=== PATIENT | female | born 1950 | race Caucasian/White ===

== ENCOUNTER 2020-02-15 22:19 | Emergency (ER) | payer OTHER ==
[2020-02-15] MEDS ORDERED: ONDANSETRON 4 MG (ODT) TAB ONE (23:30)
[2020-02-16] MEDS ORDERED: LIDOCAINE 1% W/EPI 1:100,000 MDV 20 ML VIAL ONE (00:36)
[2020-02-16] MEDS ORDERED: PROMETHAZINE INJ 25 MG/ML AMP ONE (00:42)
[2020-02-16] MEDS ORDERED: PROMETHAZINE 25 MG TABLET ONE (00:44)
[2020-02-16] MEDS ORDERED: TETANUS & DIPHTHERIA TOX,ADULT 0.5 ML VIAL ONE (00:44)
--- NOTE | 2020-02-16 01:05 | ER ---
Nurse's Notes [facility] Name: Ping Hernandez Age: 69 yrs Sex: Female : 1950 Arrival Date: 02/15/2020 Time: 22:20 Bed 5 Private MD: Diagnosis: Nasal fracture;Distal Phalanx Fracture Presentation: 02/14 22:34 Chief complaint: Patient states: States may have tripped over desk chair and hit face lp1 on tile floor; No LOC; laceration to left temporal area, pain to left thumb, bruising to bridge of nose, deformity noted. Care prior to arrival: None. Mechanism of Injury: Fall from standing position. Trauma event details: Injury occurred in the [facility], Injury occurred: at home. Injury occurred: February 15, 2020 Injury occurred at: 21:30. 22:34 Method Of Arrival: Ambulatory lp1 22:34 Acuity: MARLEE 2 lp1 22:37 Coronavirus screen: Proceed with normal triage. Ebola Screen: No symptoms or risks lp1 identified at this time. Initial Sepsis Screen: Does the patient meet any 2 criteria? No. Patient's initial sepsis screen is negative. Does the patient have a suspected source of infection? No. Patient's initial sepsis screen is negative. Risk Assessment: Do you want to hurt yourself or someone else? Patient reports no desire to harm self or others. Onset of symptoms was February 15, 2020 at 21:30. Triage Assessment: 22:40 General: Appears in no apparent distress. uncomfortable, Behavior is calm, cooperative, rr5 appropriate for age. Trauma Activation: Alert Physician: ED Physician; Name: Dr. Alvarez; Notified At: 23:03; Arrived At: 23:03 Physician: General Surgeon; Name: N/A; Notified At: 23:03; Arrived At: Physician: Radiology; Name: Nicki; Notified At: 23:03; Arrived At: 23:04 Physician: Respiratory; Name: N/A; Notified At: 23:03; Arrived At: Physician: Lab; Name: N/A; Notified At: 23:03; Arrived At: Historical: - Allergies: 22:36 Codeine; lp1 - Home Meds: 22:36 Metoprolol Tartrate Oral [Active]; lp1 - PMHx: 22:36 Hypertension; lp1 - PSHx: 22:36 Hysterectomy; lp1 - Immunization history:: Adult Immunizations up to date, Last tetanus immunization: unknown. - Social history:: Smoking status: Patient denies any tobacco usage or history of. Screenin:36 Abuse screen: Denies threats or abuse. Denies injuries from another. Nutritional lp1 screening: No deficits noted. Tuberculosis screening: No symptoms or risk factors identified. Fall Risk None identified. Primary Survey: 22:36 NO uncontrolled hemorrhage observed. A: The patient is alert. Airway: patent. lp1 Breathing/Chest: Breath sounds: clear, Chest inspection: symmetrical rise and fall of the chest. Circulation: Skin color: pink, Skin temperature: warm, dry. Disability Alert. 22:36 Exposure/Environment: All clothing and personal items were removed. There is no rr5 evidence of uncontrolled external bleeding. Obvious injury(ies) are noted at this time: swelling on the face cut wound left temporal area. abrasion, swelling bruise noted on the left thumb. A warming method has been applied: A warm blanket has been provided to the patient. 23:30 Reassessment Airway Airway Patent Breathing/Chest Respiratory pattern Regular rr5 Respiratory effort Spontaneous Unlabored Breath sounds Clear Chest inspection Symmetrical Circulation Heart tones Present Pulses Palpable Color [place] Temperature Warm Dry Disability Alert. Secondary Survey: 22:36 HEENT: Face Other swelling and bruise (purplish in color) lacerated wound at left rr5 temporal area Eyes: Raccoon eyes noted. right eye and left eye. Ears: clear bilaterally. Nose: clear to bilateral nares. Throat: is clear with gag reflex present. 22:36 Musculoskeletal: Circulation, motion, and sensation intact. Swelling present in left rr5 thumb. Assessment: 22:40 General: Appears in no apparent distress. uncomfortable, Behavior is calm, cooperative, rr5 appropriate for age. 22:40 Pain: Complains of pain in face, right eye, left eye and nose Pain Quality of pain is rr5 described as aching, Pain began suddenly, Is intermittent. Neuro: Level of Consciousness is awake, alert, obeys commands, Oriented to person, place, time, situation, Appropriate for age. Cardiovascular: Capillary refill < 3 seconds Patient's skin is warm and dry. Respiratory: Airway is patent Respiratory effort is even, unlabored, Respiratory pattern is regular, symmetrical. GI: Reports nausea. : No signs and/or symptoms were reported regarding the genitourinary system. EENT: Eyes swelling noted. swelling on the nose bridge noted. Reports pain in right eye, nose and left eye. Derm: Bruising that is dark purple, on right eye, left eye, dorsal aspect of proximal phalanx of left thumb, palmar aspect of distal phalanx of left thumb, palmar aspect of proximal phalanx of left thumb, left thumbnail and nose. Musculoskeletal: Circulation, motion, and sensation intact. Capillary refill < 3 seconds. 02/15 00:00 Reassessment: Patient appears in no apparent distress at this time. Patient is alert, rr5 oriented x 3, equal unlabored respirations, skin warm/dry/pink. awaiting for results. 01:00 Reassessment: Patient appears in no apparent distress at this time. Patient is alert, rr5 oriented x 3, equal unlabored respirations, skin warm/dry/pink. for discharge awaiting to feel relieve form the nausea. 02:00 Reassessment: Patient appears in no apparent distress at this time. Patient is alert, rr5 oriented x 3, equal unlabored respirations, skin warm/dry/pink. Patient states feeling better. Patient states symptoms have improved. 03:00 Reassessment: Patient appears in no apparent distress at this time. Patient is alert, rr5 oriented x 3, equal unlabored respirations, skin warm/dry/pink. discharge instruction given and explained without complaints made Patient states symptoms have improved. Vital Signs: 02/14 22:37 BP 133 / 95; Pulse 81; Resp 18; Temp 99(TE); Pulse Ox 99% on R/A; Weight 69.4 kg (R); lp1 Height 5 ft. 2 in. (157.48 cm); Pain 9/10; 02/15 00:00 BP 111 / 66; Pulse 79; Resp 18; Pulse Ox 98% ; rr5 01:00 BP 129 / 94; Pulse 71; Resp 15; Pulse Ox 100% ; rr5 02:00 BP 116 / 64; Pulse 75; Resp 19; Pulse Ox 99% ; rr5 03:00 BP 131 / 75; Pulse 80; Resp 16; Pulse Ox 99% on R/A; rr5 02/14 22:37 Body Mass Index 27.98 (69.40 kg, 157.48 cm) lp1 Damascus Coma Score: 02/14 22:36 Eye Response: spontaneous(4). Verbal Response: oriented(5). Motor Response: obeys lp1 commands(6). Total: 15. 02/15 03:00 Eye Response: spontaneous(4). Verbal Response: oriented(5). Motor Response: obeys rr5 commands(6). Total: 15. Trauma Score (Adult): 02/14 22:36 Eye Response: spontaneous(1); Verbal Response: oriented(1); Motor Response: obeys lp1 commands(2); Systolic BP: > 89 mm Hg(4); Respiratory Rate: 10 to 29 per min(4); Kathleen Score: 15; Trauma Score: 12 02/15 03:00 Eye Response: spontaneous(1); Verbal Response: oriented(1); Motor Response: obeys rr5 commands(2); Systolic BP: > 89 mm Hg(4); Respiratory Rate: 10 to 29 per min(4); Damascus Score: 15; Trauma Score: 12 ED Course: 02/14 22:20 Patient arrived in ED. cl3 22:35 Triage completed. lp1 22:36 Arm band placed on right wrist. lp1 22:37 Patient maintains SpO2 saturation greater than 95% on room air. lp1 22:37 Thermoregulation: warm blanket given to patient. lp1 22:40 Patient has correct armband on for positive identification. Placed in gown. Bed in low rr5 position. Call light in reach. 22:40 Pulse ox on. NIBP on. rr5 22:55 Michelle Minor PA is PHCP. jmm 22:55 Dieudonne Alvarez MD is Attending Physician. jmm 23:19 Jeet Coleman, RN is Primary Nurse. rr5 23:38 Hand Left 3 View XRAY In Process Unspecified. EDMS 23:43 CT Facial Bones W/O Con In Process Unspecified. EDMS 23:44 CT Head C Spine In Process Unspecified. EDMS 02/15 00:40 Assist provider with laceration repair on left episcopal that was 2.5 cm. or less using rr5 sutures. Set up tray. Performed by Michelle THOMASON Dressed with band aid, Neosporin, Patient tolerated well. 00:40 Patient did not have IV access during this emergency room visit. rr5 01:04 Alexia Ngo MD is Referral Physician. [facility] 02:55 Aluminum finger splint applied to palmar aspect of distal phalanx of left thumb and ds4 palmar aspect of proximal phalanx of left thumb. 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 Exp: lp1 11/08/2021. Lot #: [id number]. } Route: IM; Site: left deltoid; :40 Follow up: Response: No adverse reaction rr5 Intake: 03:00 PO: 0ml; Total: 0ml. rr5 Outcome: 01:04 Discharge ordered by . [facility] 03:05 Discharged to home via wheelchair. rr5 03:05 Condition: stable 03:05 Discharge instructions given to patient, Instructed on discharge instructions, follow up and referral plans. medication usage, Demonstrated understanding of instructions, follow-up care, medications, Prescriptions given X 2. 03:05 patient feels nauseatedPatient's length of stay extended due to rr5 03:07 Patient left the ED. rr5 Signatures: Dispatcher [employer] EDMS Michelle Minor PA PA jmm Pena, Laura, RN RN lp1 Hong Fontaine ds4 Jeet Coleman RN RN rr5 Peace Gaspar cl3 Corrections: (The following items were deleted from the chart) 02/14 23:03 22:34 Acuity: MARLEE 3 lp1 lp1
--- NOTE | 2020-02-16 01:05 | EDPHYS ---
Physician Documentation [facility] Name: Ping Hernandez Age: 69 yrs Sex: Female : 1950 Arrival Date: 02/15/2020 Time: 22:20 Bed 5 Private MD: ED Physician Dieudonne Alvarez HPI: 02/14 22:57 This 69 yrs old Female presents to ER via Ambulatory with complaints of Fall jmm Injury, Nausea. 22:57 Details of fall: The patient fell from an upright position. Onset: The symptoms/episode jmm began/occurred acutely, just prior to arrival. Associated injuries: The patient sustained injury to the head, left thumb. This is a 69 year old female with a history of htn that presents to the ED after tripping and hitting her head against the edge of a desk. Patient states her thumb may have been hit by the edge of a staircase. Denies loc or vomiting but complains of nausea. . Historical: - Allergies: 22:36 Codeine; lp1 - Home Meds: 22:36 Metoprolol Tartrate Oral [Active]; lp1 - PMHx: 22:36 Hypertension; lp1 - PSHx: 22:36 Hysterectomy; lp1 - Immunization history:: Adult Immunizations up to date, Last tetanus immunization: unknown. - Social history:: Smoking status: Patient denies any tobacco usage or history of. ROS: 22:57 Constitutional: Negative for fever, chills, and weight loss, Cardiovascular: Negative jmm for chest pain, palpitations, and edema, Respiratory: Negative for shortness of breath, cough, wheezing, and pleuritic chest pain. 22:57 Abdomen/GI: Positive for nausea. 22:57 MS/extremity: Positive for injury or acute deformity, pain. 22:57 Skin: Positive for laceration(s). 22:57 All other systems are negative. Exam: 22:57 Constitutional: This is a well developed, well nourished patient who is awake, alert, jmm and in no acute distress. 22:57 Neck: Trachea midline, Supple Chest/axilla: Normal chest wall appearance and motion. Cardiovascular: Regular rate and rhythm. No edema appreciated Respiratory: Normal respirations, no respiratory distress appreciated Abdomen/GI: Non distended, soft Back: Normal ROM 22:57 Head/face: frontal facial swelling noted, 2 cm laceration noted to the left frontal scalp, . 22:57 ENT: Nose: swelling noted, nasal septal hematoma is not appreciated. 22:57 Musculoskeletal/extremity: ecchymosis noted to the left thumb, ttp, < 2 sec dist cap refill, NVI. 22:57 Skin: 2 cm laceration noted to the left frontal scalp, ecchymosis noted to the left thumb. 22:57 Neuro: Orientation: is normal, Mentation: is normal, Memory: is normal. 22:57 Psych: Behavior/mood is pleasant, cooperative. Vital Signs: 22:37 BP 133 / 95; Pulse 81; Resp 18; Temp 99(TE); Pulse Ox 99% on R/A; Weight 69.4 kg (R); lp1 Height 5 ft. 2 in. (157.48 cm); Pain 9/10; 02/15 00:00 BP 111 / 66; Pulse 79; Resp 18; Pulse Ox 98% ; rr5 01:00 BP 129 / 94; Pulse 71; Resp 15; Pulse Ox 100% ; rr5 02:00 BP 116 / 64; Pulse 75; Resp 19; Pulse Ox 99% ; rr5 03:00 BP 131 / 75; Pulse 80; Resp 16; Pulse Ox 99% on R/A; rr5 02/14 22:37 Body Mass Index 27.98 (69.40 kg, 157.48 cm) lp1 Kathleen Coma Score: 02/14 22:36 Eye Response: spontaneous(4). Verbal Response: oriented(5). Motor Response: obeys lp1 commands(6). Total: 15. 02/15 03:00 Eye Response: spontaneous(4). Verbal Response: oriented(5). Motor Response: obeys rr5 commands(6). Total: 15. Trauma Score (Adult): 02/14 22:36 Eye Response: spontaneous(1); Verbal Response: oriented(1); Motor Response: obeys lp1 commands(2); Systolic BP: > 89 mm Hg(4); Respiratory Rate: 10 to 29 per min(4); Kathleen Score: 15; Trauma Score: 12 02/15 03:00 Eye Response: spontaneous(1); Verbal Response: oriented(1); Motor Response: obeys rr5 commands(2); Systolic BP: > 89 mm Hg(4); Respiratory Rate: 10 to 29 per min(4); Hosford Score: 15; Trauma Score: 12 Laceration: 01:01 Wound Repair of 2cm ( 0.8in ) subcutaneous laceration to left adventist. Distal [facility] neuro/vascular/tendon intact. Anesthesia: Local anesthetic administered with 5 mls of 1% lidocaine. Wound prep: Simple cleansing with betadine by me. Skin closed with 5 5-0 Prolene using simple sutures and sterile technique. Patient tolerated well. MDM: 02/14 22:57 Patient medically screened. [facility] 02/15 00:14 Data reviewed: vital signs, nurses notes. [facility] 01:01 Counseling: I had a detailed discussion with the patient and/or guardian regarding: the [facility] historical points, exam findings, and any diagnostic results supporting the discharge/admit diagnosis, radiology results, the need for outpatient follow up, to return to the emergency department if symptoms worsen or persist or if there are any questions or concerns that arise at home. ED course: CT imaging revealed hematoma, PE did not reveal a nasal septa hematoma. Patient is advised to follow up with ENT for nasal bone fracture. Patient is otherwise given strict return precautions. Patient understood and agrees with the plan of care. . 02/14 23:03 Order name: CT Head C Spine [facility] 02/14 23:03 Order name: CT Facial Bones W/O Con [facility] 02/14 23:03 Order name: Hand Left 3 View XRAY; Complete Time: 15:11 [facility] 02/15 01:01 [place] [facility] [place]: wound care, left thumb, aluminum foam splint; Complete Time: [facility] 02:55 Administered Medications: 02/14 23:46 Drug: Zofran (Ondansetron) 4 mg Route: PO; rr5 02/15 00:30 Follow up: Response: No adverse reaction; Nausea unchanged rr5 00:40 Drug: Lidocaine (1 %) 20 ml {Note: given by michelle CERRATO} Volume: 20 ml; Route: rr5 Infiltration; 01:40 Follow up: Response: No adverse reaction rr5 00:43 Drug: Promethazine 25 mg Route: PO; lp1 02:30 Follow up: Response: No adverse reaction; Marked relief of symptoms rr5 00:43 Drug: Tetanus-Diphtheria Toxoid Adult 0.5 ml {[employer] Operator: [employer]. Exp: lp1 11/08/2021. Lot #: [id number]. } Route: IM; Site: left deltoid; 01:40 Follow up: Response: No adverse reaction rr5 Disposition: 07:41 Co-signature as Attending Physician, Dieudonne Alvarez MD I agree with the assessment and bob plan of care. Disposition: 02/16/20 01:04 Discharged to Home. Impression: Nasal fracture, Distal Phalanx Fracture. - Condition is Stable. - Discharge Instructions: Finger Fracture, Nasal Fracture. - Prescriptions for Augmentin 875- 125 mg Oral Tablet - take 1 tablet by ORAL route every 12 hours for 10 days; 20 tablet. promethazine 25 mg Oral Tablet - take 1 tablet by ORAL route every 6 hours As needed; 20 tablet. Ultracet 37.5- 325 mg Oral Tablet - take 1 tablet by ORAL route every 6 hours - for up to 5 days; do not exceed 8 tablets per day.; 12 tablet. - Medication Reconciliation Form, Thank You Letter, Antibiotic Education, Prescription Opioid Use form. - Follow up: Alexia Ngo MD; When: 2 - 3 days; Reason: Recheck today's complaints, Continuance of care, Staple/Suture removal, Re-evaluation by your physician. Signatures: Dispatcher [employer] EDDieudonne Escobar MD MD cha Mickail, Joel, PA PA jmm Pena, Laura, RN RN lp1 Jeet Coleman RN RN rr5 Corrections: (The following items were deleted from the chart) 03:07 01:04 02/16/2020 01:04 Discharged to Home. Impression: Nasal fracture; Distal Phalanx rr5 Fracture. Condition is Stable. Forms are Medication Reconciliation Form, Thank You Letter, Antibiotic Education, Prescription Opioid Use. Follow up: Alexia Ngo; When: 2 - 3 days; Reason: Recheck today's complaints, Continuance of care, Staple/Suture removal, Re-evaluation by your physician. carmita
[2020-02-16 03:12] VITALS: BP 133/95; TEMP 99; O2SAT 99
--- NOTE | 2020-02-16 11:24 | RAD REPORT ---
EXAM DESCRIPTION: RAD - Hand Left 3 View - 02/15/2020 11:38 pm CLINICAL HISTORY: fall, hand injury COMPARISON: None. FINDINGS: Transverse fracture is present through the tuft of the left thumb. No distraction or angul ation deformity of any measurable degree. Soft tissue is swollen at the thumb. No other fracture or acute bone process. Patient has significant degenerative change at the trapezial first metacarpal articulation. No foreign body. IMPRESSION: Fracture of the tuft distal phalanx left thumb. No distraction or angulation.
--- NOTE | 2020-02-16 19:53 | RAD REPORT ---
EXAM DESCRIPTION: CT - Facial Bones W/ Mpr - 02/16/2020 6:57 am CLINICAL HISTORY: 69 years Female fall COMPARISON: None TECHNIQUE: Images were obtained in axial, sagittal, and coronal planes. This exam was performed according to our departmental dose-optimization program which includes use of Automated Exposure Control, adjustment of the mA and/or kV according to patient size and/or use of iterative reconstruction technique. FINDINGS: Comminuted nasal bone fractures. Fragmentation anterior maxillary spine. Soft tissue swell ing with suspected hematoma nasal region. No fractures orbits bilaterally. Zygomatic arches intact bilaterally. No mandibular fracture. No evidence for dental abscess. Pterygoid plates intact bilaterally. Symmetric aeration mastoid air cells bilaterally. No air-fluid levels seen. Otherwise unremarkable paranasal sinuses. Prevertebral soft tissues appear normal. Intact odontoid and predental space. Moderate anterior osteo phyte formation C4-5, C5-6, and C6-7 levels. Marginal spur formation with neural foraminal narrowing noted at these levels bilaterally. IMPRESSION: Comminuted nasal bone fractures. Fragmentation anterior maxillary spine. No additional fracture seen. Electronically signed by: Melissa Rivera MD 02/15/2020 11:53 PM CDT Due to temporary technical issues with the PACS/Fluency reporting system, reports are being signed by the in house radiologist as a courtesy to ensure prompt reporting. The interpreting radiologist is f ully responsible for the content of the report.
--- NOTE | 2020-02-16 20:20 | RAD REPORT ---
EXAM DESCRIPTION: CT - [id number] - 02/16/2020 6:58 am CLINICAL HISTORY: Trauma. COMPARISON: None. TECHNIQUE: CT scan of the brain and cervical spine was performed without IV contrast. This exam was performed according to our departmental dose-optimization program, which includes automated exposure control, adjustment of the mA and/or kV according to patient size and/or use of iterative reconstruct ion technique. FINDINGS: BRAIN: The ventricles, cisterns, and sulci are age-appropriate. No evidence of acute infarction, intracrania l hemorrhage, extra-axial fluid collection, or midline shift. No air-fluid levels are seen in the par anasal sinuses to suggest acute sinusitis. No depressed skull fracture. CERVICAL SPINE: No acute cervical fracture or prevertebral soft tissue swelling. There is straightening of the normal cervical lordosis, which may be due to cervical collar, muscle spasm, or patient positioning. There is mild degenerative disc disease in the cervical spine. There is also facet arthropathy. No advanced canal stenosis is identified. IMPRESSION: 1. No acute intracranial hemorrhage. 2. No acute fracture or subluxation of the cervical spine. Electronically signed by: Brandon Soliman MD 02/15/2020 11:49 PM CDT Due to temporary technical issues with the PACS/Fluency reporting system, reports are being signed by the in house radiologist as a courtesy to ensure prompt reporting. The interpreting radiologist is f ully responsible for the content of the report. *
== END 2020-02-16 03:07 | disposition home or self-care (01) ==
LOC: ER 22:19
PROC: 0JQ10ZZ Repair Face Subcutaneous Tissue and Fascia, Open Approach (ICD-10-PCS; principal; 2020-02-16)
DX: S02.2XXA Fracture of nasal bones, initial encounter for closed fracture (principal); S62.522A Displaced fracture of distal phalanx of left thumb, initial encounter for closed fracture; S01.81XA Laceration without foreign body of other part of head, initial encounter; W01.190A Fall on same level from slipping, tripping and stumbling with subsequent striking against furniture, initial encounter; Y93.9 Activity, unspecified; Y92.9 Unspecified place or not applicable; I10 Essential (primary) hypertension; Z88.5 Allergy status to narcotic agent
CPT/HCPCS: 70450; 72125; 70486; 76377; 73130; 90471; 90714; 99284; 12011; J2550; Q0169

== ENCOUNTER 2025-01-11 13:54 | Emergency (ER) | payer OTHER ==
--- OUTSIDE RECORDS SUMMARY | 2025-01-11 13:58 | XMS REPORT | Continuity of Care Document ---
Author Name Unknown Address [address] [place] [address] Organization [facility] Address [address] [place] [address] Care Team Providers Care Technology Director Name Role Phone William Shore Attending Clinician Unavailable No, PCP Attending Clinician Unavailable Chito Torres Attending Clinician Unavailable Dylan Attending Clinician Unavailable Roselia Attending Clinician Unavaila ble Dylan Admitting Clinician Unavailable Roselia Admitting Clinician Unavaila ble Payers Payer Name Policy Type Policy Number Effective Date Expirati on Date Source [employer] MEDICARE 53 [id number] 2023 00:00:00 Common [facility] AETNA (MEDICARE REPLACEMENT PPO) [id number] 2022 00:00:00 [employer] MEDICARE 53 [id number] Co mmon [facility] Problems Condition Name Condition Details Condition Category Status Onset Date Resolution Date Last Treatment Date Treating Clinician Comments Source Chronic anxiety Chronic Anxiety Problem Active 2022-09 00:00: 00 [facility] Idiopathic peripheral neuropathy Idiopathic Peripheral Neuropathy Problem Active 2022-09 00:00: 00 [facility] Benign essential hypertensi on Benign Essential Hypertensi on Problem Active 2022-09 00:00: 00 [facility] Hyperlipid emia Hyperlipid emia Problem Active 2022-09 00:00: 00 [facility] [id number] Allergic rhinitis, unspecifie d seasonalit y, unspecifie d trigger Problem [facility] [id number] Current moderate episode of major depressive disorder without prior episode Problem [facility] [id number] Mixed hyperlipid emia Problem [facility] [id number] Seasonal allergies Problem [facility] [id number] HTN, goal below 150/90 Problem [facility] Vitamin D deficiency Vitamin D deficiency Problem [facility] Allergies, Adverse Reactions, Alerts Allergy Name Allergy Type Status Severity Reaction(s) Onset Date Inactive Date Treating Clinician Comments Source codeine DA Active MO 10-02 00:00: 00 [facility] codeine DA Active U 03-12 00:00: 00 [facility] .ANIMAL DA Active U 11-03 00:00: 00 [facility] .TREES DA Active U 11-03 00:00: 00 [facility] CODEINE DA Active U 11-03 00:00: 00 [facility] DUST DA Active U 11-03 00:00: 00 [facility] MOLD DA Active U 11-03 00:00: 00 [facility] No Known Contrast Allergie s DA Active U - 00:00: 00 [facility] No Known Food Allergie s DA Active U 11-03 00:00: 00 [facility] Codeine Allergy to substanc e Active Headache [facility] STATINS- HMG-COA REDUCTAS E INHIBITO RS Allergy to substanc e Active Nausea [facility] Codeine Codeine Active Unknown [facility] Social History Social Habit Start Date Stop Date Quantity Comments Source Sex Assigned At [facility] History of Tobacco Use [facility] Smoking Status Start Date Stop Date Source Never Smoker [facility] Medications Ordered Medication Name Filled Medication Name Start Date Stop Date Current Medication? Ordering Clinician Indication Dosage Frequency Signature (SIG) Comments Components Source Kenalog (Triamcinol one) Kenalog (Triamcinol one) 11-13 00:00: 00 No 40mg [facility] oseltamivir 75 mg capsule TAKE 1 CAPSULE BY MOUTH TWICE DAILY oseltamivir 75 mg capsule TAKE 1 CAPSULE BY MOUTH TWICE DAILY No oseltamivi r 75 mg capsule TAKE 1 CAPSULE BY MOUTH TWICE DAILY [facility] Praluent Pen 150 mg/mL subcutaneou s pen injector INJECT 1 ML UNDER THE SKIN EVERY TWO WEEKS Praluent Pen 150 mg/mL subcutaneou s pen injector INJECT 1 ML UNDER THE SKIN EVERY TWO WEEKS No Praluent Pen 150 mg/mL subcutaneo us pen injector INJECT 1 ML UNDER THE SKIN EVERY TWO WEEKS [facility] Praluent Pen 75 mg/mL subcutaneou s pen injector Inject 1 mL every 2 weeks by subcutaneou s route as directed for 90 days. Praluent Pen 75 mg/mL subcutaneou s pen injector Inject 1 mL every 2 weeks by subcutaneou s route as directed for 90 days. No 1mL Q2W Praluent Pen 75 mg/mL subcutaneo us pen injector Inject 1 mL every 2 weeks by subcutaneo us route as directed for 90 days. [facility] tizanidine 2 mg tablet TAKE 1 TABLET BY MOUTH AT BEDTIME ONE A DAY NEEDED FOR MUSCLE SPASMS AND MUSCLE TENSION /MAY CAUSE DROWSINESS tizanidine 2 mg tablet TAKE 1 TABLET BY MOUTH AT BEDTIME ONE A DAY NEEDED FOR MUSCLE SPASMS AND MUSCLE TENSION /MAY CAUSE DROWSINESS No tizanidine 2 mg tablet TAKE 1 TABLET BY MOUTH AT BEDTIME ONE A DAY NEEDED FOR MUSCLE SPASMS AND MUSCLE TENSION /MAY CAUSE DROWSINESS [facility] Vitamin D 2000 UNIT Vitamin D 2000 UNIT No 1{table t} QD Vitamin D 2000 UNIT Metoprolol Tartrate 50 MG Metoprolol Tartrate 50 MG No 1{table t_with_ food} QD Metoprolol Tartrate 50 MG Vitamin C 500 MG Vitamin C 500 MG No Vitamin C 500 MG Edarbyclor 40-25 MG Edarbyclor 40-25 MG No 1{table t} QD Edarbyclor 40-25 MG Metoprolol Succinate ER 50 MG Metoprolol Succinate ER 50 MG No 1{table t} QD Metoprolol Succinate ER 50 MG Amitriptyli ne HCl 10 MG Amitriptyli ne HCl 10 MG No 1{table t_at_be dtime} QD Amitriptyl ine HCl 10 MG Sulfamethox azole-Trime thoprim 800-160 MG Sulfamethox azole-Trime thoprim 800-160 MG No 1{table t} BID Sulfametho xazole-Tri methoprim 800-160 MG Probiotic Pearls - Probiotic Pearls - No Probiotic Pearls - amitriptyli ne 10 mg tablet Take 1 tablet every day by oral route at bedtime for 30 days. amitriptyli ne 10 mg tablet Take 1 tablet every day by oral route at bedtime for 30 days. No 1 Q1D amitriptyl ine 10 mg tablet Take 1 tablet every day by oral route at bedtime for 30 days. [facility] CoQ-10 CoQ-10 No CoQ-10 [facility] Edarbyclor 40 mg-12.5 mg tablet Take 1 tablet every day by oral route as directed for 30 days, for management of blood pressuren. Edarbyclor 40 mg-12.5 mg tablet Take 1 tablet every day by oral route as directed for 30 days, for management of blood pressuren. No 1 Q1D Edarbyclor 40 mg-12.5 mg tablet Take 1 tablet every day by oral route as directed for 30 days, for management of blood pressuren. [facility] metoprolol succinate ER 50 mg tablet,exte nded release 24 hr Take 1 tablet every day by oral route as directed for 90 days, for control of blood pressure. metoprolol succinate ER 50 mg tablet,exte nded release 24 hr Take 1 tablet every day by oral route as directed for 90 days, for control of blood pressure. No 1 Q1D metoprolol succinate ER 50 mg tablet,ext ended release 24 hr Take 1 tablet every day by oral route as directed for 90 days, for control of blood pressure. [facility] Probiotic Probiotic No Probiotic [facility] Vitamin C Vitamin C No Vitamin C [facility] Vitamin D Vitamin D No Vitamin D [facility] Aspercreme (lidocaine) 4 % topical patch APPLY TO AFFECTED AREA(S) ,KEEP IT ON FOR 12 HOURS THEN TAKE IT OFF FOR 12 HOUR ONCE DAILY Aspercreme (lidocaine) 4 % topical patch APPLY TO AFFECTED AREA(S) ,KEEP IT ON FOR 12 HOURS THEN TAKE IT OFF FOR 12 HOUR ONCE DAILY No Aspercreme (lidocaine ) 4 % topical patch APPLY TO AFFECTED AREA(S) ,KEEP IT ON FOR 12 HOURS THEN TAKE IT OFF FOR 12 HOUR ONCE DAILY [facility] benzonatate 200 mg capsule TAKE 1 CAPSULE BY MOUTH THREE TIMES DAILY NEEDED benzonatate 200 mg capsule TAKE 1 CAPSULE BY MOUTH THREE TIMES DAILY NEEDED No benzonatat e 200 mg capsule TAKE 1 CAPSULE BY MOUTH THREE TIMES DAILY NEEDED [facility] cyclobenzap rine 10 mg tablet TAKE 1 TABLET BY MOUTH AT BEDTIME ONE A DAY NEEDED FOR MUSCLE SPASMS AND MUSCLE TENSION /MAY CAUSE DROWSINESS cyclobenzap rine 10 mg tablet TAKE 1 TABLET BY MOUTH AT BEDTIME ONE A DAY NEEDED FOR MUSCLE SPASMS AND MUSCLE TENSION /MAY CAUSE DROWSINESS No cyclobenza beverley 10 mg tablet TAKE 1 TABLET BY MOUTH AT BEDTIME ONE A DAY NEEDED FOR MUSCLE SPASMS AND MUSCLE TENSION /MAY CAUSE DROWSINESS [facility] cyclobenzap rine 5 mg tablet TAKE 1 TABLET BY MOUTH ONCE DAILY AT BEDTIME NEEDED cyclobenzap rine 5 mg tablet TAKE 1 TABLET BY MOUTH ONCE DAILY AT BEDTIME NEEDED No cyclobenza beverley 5 mg tablet TAKE 1 TABLET BY MOUTH ONCE DAILY AT BEDTIME NEEDED [facility] diclofenac 1 % topical gel APPLY TO AFFECTED AREAS EVERY 6 HOURS NEEDED FOR PAIN diclofenac 1 % topical gel APPLY TO AFFECTED AREAS EVERY 6 HOURS NEEDED FOR PAIN No diclofenac 1 % topical gel APPLY TO AFFECTED AREAS EVERY 6 HOURS NEEDED FOR PAIN [facility] diclofenac sodium 50 mg tablet,karen yed release TAKE 1 TABLET BY MOUTH 2 TIMES DAILY WITH MEALS FOR MUSCLE/JOIN T/BACK PAIN AND INFLAMMATIO N diclofenac sodium 50 mg tablet,karen yed release TAKE 1 TABLET BY MOUTH 2 TIMES DAILY WITH MEALS FOR MUSCLE/JOIN T/BACK PAIN AND INFLAMMATIO N No diclofenac sodium 50 mg tablet,del ayed release TAKE 1 TABLET BY MOUTH 2 TIMES DAILY WITH MEALS FOR MUSCLE/BRIELLE NT/BACK PAIN AND INFLAMMATI ON [facility] hyoscyamine 0.125 mg disintegrat ing tablet TAKE 1 TO 2 TABLETS BY MOUTH EVERY 4 TO 6 HOURS hyoscyamine 0.125 mg disintegrat ing tablet TAKE 1 TO 2 TABLETS BY MOUTH EVERY 4 TO 6 HOURS No hyoscyamin e 0.125 mg disintegra ting tablet TAKE 1 TO 2 TABLETS BY MOUTH EVERY 4 TO 6 HOURS [facility] meloxicam 15 mg tablet TAKE 1 TABLET(S) BY MOUTH ONCE A DAY WITH MEALS FOR MUSCLE /JOINT / BACK PAIN AND INFLAMMATIO N meloxicam 15 mg tablet TAKE 1 TABLET(S) BY MOUTH ONCE A DAY WITH MEALS FOR MUSCLE /JOINT / BACK PAIN AND INFLAMMATIO N No meloxicam 15 mg tablet TAKE 1 TABLET(S) BY MOUTH ONCE A DAY WITH MEALS FOR MUSCLE /JOINT / BACK PAIN AND INFLAMMATI ON [facility] Vital Signs Vital Name Observation Time Observation Value Comments S ource height 2024-11-08 14:00:00 62.5 [in_i] Comm on [facility] weight 2024-11-08 14:00:00 153.8 [lb_av] Co mmon [facility] temperature 2024-11-08 14:00:00 97.4 [degF] Com mon [facility] bmi 2024-11-08 14:00:00 27.68 kg/m2 Comm on [facility] oximetry 2024-11-08 14:00:00 99 % Commo n [facility] respiratory rate 2024-11-08 14:00:00 17 /min [facility] blood pressure systolic 2024-11-08 14:00:00 127 mm[Hg] [facility] blood pressure diastolic 2024-11-08 14:00:00 68 mm[Hg] [facility] height 2024-11-08 14:00:00 62.5 [in_i] Comm on [facility] weight 2024-11-08 14:00:00 153.8 [lb_av] Co mmon [facility] temperature 2024-11-08 14:00:00 97.4 [degF] Com mon [facility] bmi 2024-11-08 14:00:00 27.68 kg/m2 Comm on [facility] oximetry 2024-11-08 14:00:00 99 % Commo n [facility] respiratory rate 2024-11-08 14:00:00 17 /min [facility] blood pressure systolic 2024-11-08 14:00:00 127 mm[Hg] [facility] blood pressure diastolic 2024-11-08 14:00:00 68 mm[Hg] [facility] Body Weight 2024-02-06 00:00:00 91513.93 g [facility] BMI (Body Mass Index) 2024-02-06 00:00:00 26.5 kg/m2 [facility] BP Diastolic 2024-02-06 00:00:00 70 mm[Hg] [facility] BP Systolic 2024-02-06 00:00:00 117 mm[Hg] [facility] Height 2024-02-06 00:00:00 154.94 cm [facility] height 2023-09-07 10:00:00 62.5 [in_i] Comm on [facility] weight 2023-09-07 10:00:00 135 [lb_av] Comm on [facility] temperature 2023-09-07 10:00:00 99.4 [degF] Com mon [facility] bmi 2023-09-07 10:00:00 24.3 kg/m2 Commo n [facility] Body Weight 2023-08-10 00:00:00 40329.56 g [facility] Height 2023-08-10 00:00:00 154.94 cm [facility] BP Diastolic 2023-08-10 00:00:00 74 mm[Hg] [facility] BMI (Body Mass Index) 2023-08-10 00:00:00 25.7 kg/m2 [facility] BP Systolic 2023-08-10 00:00:00 122 mm[Hg] [facility] height 2023-07-03 13:00:00 62.5 [in_i] Comm on [facility] weight 2023-07-03 13:00:00 147.4 [lb_av] Co mmon [facility] temperature 2023-07-03 13:00:00 97.5 [degF] Com mon [facility] bmi 2023-07-03 13:00:00 26.53 kg/m2 Comm on [facility] oximetry 2023-07-03 13:00:00 100 % Commo n [facility] respiratory rate 2023-07-03 13:00:00 16 /min [facility] blood pressure systolic 2023-07-03 13:00:00 139 mm[Hg] [facility] blood pressure diastolic 2023-07-03 13:00:00 65 mm[Hg] [facility] height 2022-03-30 14:40:00 62.5 [in_i] Comm on [facility] weight 2022-03-30 14:40:00 155 [lb_av] Comm on [facility] bmi 2022-03-30 14:40:00 27.9 kg/m2 Commo n [facility] Procedures Procedure Date / Time Performed Performing Clinicia n Source electrocardiogram 2023-08-10 00:00:00 [facility] Encounters Start Date/Time End Date/Time Encounter Type Admission Type Attending [facility] Care Facility Care Department Encounter ID Source 2024-11-06 10:51:00 Outpatient William Shore [facility] [id number] [facility] 2024-11-05 09:25:01 Outpatient No, PCP CLS CLS [id number] [facility] 2024-10-31 15:22:02 Outpatient CLS CLS [id number] [facility] 2024-01-01 10:31:00 Outpatient ShoreWilliam bryant [facility] [id number] [facility] 2023-07-03 13:22:00 Outpatient Chito TorresLMLC STLMLC [id number] [facility] 2022-03-30 08:31:01 Outpatient Juan Shoreh STLC STLMLC [id number] [facility] 2021-10-20 12:15:37 Outpatient Juan Shoreh STLMLC STLMLC [id number] [facility] 2021-10-20 11:33:03 Outpatient Juan Shoreh STLC STLMLC [id number] [facility] 2024-12-11 00:00:00 2024-12-11 00:00:00 (TEL) STLMLC STLMLC [id number] [facility] 2024-11-08 00:00:00 2024-11-08 00:00:00 OFFICE VISIT ESTAB PT LEVEL 4 STLMLC STLMLC [id number] [facility] 2024-11-05 00:00:00 2024-11-05 00:00:00 (TEL) STLMLC STLMLC [id number] [facility] 2024-02-06 00:00:00 2024-02-06 00:00:00 Lamonte Stevenson MD: [address] [address] , Ph. [phone] [facility] 514 [facility] 2023-12-20 00:00:00 2023-12-20 00:00:00 Outpatient Graham_Samson Gee [facility] 327 [facility] 2023-09-07 00:00:00 2023-09-07 00:00:00 OFFICE VISIT ESTAB PT LEVEL 3 STLMLC STLMLC [id number] [facility] 2023-09-07 00:00:00 2023-09-07 00:00:00 (TEL) STLMLC STLMLC [id number] [facility] 2023-08-14 00:00:00 2023-08-14 00:00:00 Outpatient Josh Gee [facility] 120 [facility] 2023-08-10 00:00:00 2023-08-10 00:00:00 Outpatient Josh Gee [facility] 116 [facility] 2023-08-10 00:00:00 2023-08-10 00:00:00 Lamonte Stevenson MD: [id number] [facility] [address] [place] [address] , Ph. [phone] [facility] [id number] [facility] 2023-08-08 00:00:00 2023-08-08 00:00:00 Outpatient Josh Gee [facility] 114 [facility] 2023-07-06 00:00:00 2023-07-06 00:00:00 Outpatient Josh Gee [facility] [id number] [facility] 2023-07-05 00:00:00 2023-07-05 00:00:00 (TEL) STLMLC STLMLC [id number] [facility] 2023-07-03 00:00:00 2023-07-03 00:00:00 OFFICE VISIT NEW PT LEVEL 4 STLMLC STLMLC [id number] [facility] 2023-06-30 00:00:00 2023-06-30 00:00:00 (TEL) STLMLC STLMLC [id number] [facility] 2022-03-30 00:00:00 2022-03-30 00:00:00 (TEL) STLMLC STLMLC [id number] [facility] 2022-03-30 00:00:00 2022-03-30 00:00:00 OL DIG E/M SVC 11-20 MIN STLMLC STLMLC [id number] [facility] 2021-12-07 09:25:00 2021-12-07 09:25:00 Outpatient GC_SWGIUSEPPEC_ Cooper_J PRIV [facility] [id number] [facility] 2021-11-26 00:00:00 2021-11-26 00:00:00 (TEL) STLMLC STLMLC [id number] [facility] 2020-04-21 10:45:00 2020-04-21 10:45:00 [facility] [place] [facility] [id number] [facility] 2020-04-06 16:45:00 2020-04-06 16:45:00 [facility] [place] [facility] Medicine [id number] [facility] 2020-02-20 08:15:00 2020-02-20 08:15:00 [facility] [place] [facility] Medicine [id number] [facility] 2019-11-13 13:45:00 2019-11-13 13:45:00 [facility] [place] [facility] [id number] [facility] 2019-10-30 16:45:00 2019-10-30 16:45:00 [facility] [place] [facility] [id number] [facility] 2019-05-16 15:00:00 2019-05-16 15:00:00 [facility] [place] [facility] Medicine [id number] [facility] Results Test Description Test Time Test Comments Results Result Co mments Source Lumbar Spine 3 ViewsLumbar Spine 3 Views Notes Date/Time Note Provider Source 2018-10-15 10:25:00 [id number] [facility] [address] [place] [address] PATIENT NAME: PING HARTMAN ADMIT DATE: 10/15/18 ACCOUNT NO: [id number] ROOM NO: AGE: 68 REPORT TYPE: OPERATIVE REPORT SEX: F ADMITTING PHYSICIAN: ATTENDING PHYSICIAN:Troy Malloy MD OPERATION DATE: 10/15/2018 PREOPERATIVE DIAGNOSES: 1. Right shoulder massive rotator cuff tears. 2. Right shoulder biceps tendinitis. 3. Right shoulder partial biceps tear. 4. Right shoulder impingement. 5. 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 6. Right superior labrum anterior to posterior 2 tear. POSTOPERATIVE DIAGNOSES: 1. Right shoulder massive rotator cuff tears. 2. Right shoulder biceps tendinitis. 3. Right shoulder partial biceps tear. 4. Right shoulder impingement. 5. 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 6. Right superior labrum anterior to posterior 2 tear. PROCEDURES: 1. Right shoulder arthroscopic rotator cuff repair, 17268. 2. Right shoulder arthroscopic biceps tenodesis, 49784. 3. Right shoulder arthroscopic subacromial decompression with minimal acromioplasty, 01583. 4. Right shoulder extensive debridement, 15765. SURGEON: Troy Malloy MD CELL ROOM OPERATOR: Cullen Hines MD SECOND LITHODUPLICATOR OPERATOR: Maxwell Mcgrath MD ADMISSION STATUS: Outpatient surgery. COMPLICATIONS: No complications. ESTIMATED BLOOD LOSS: 10 mL. SPECIMENS: No specimen. ANESTHESIA: General anesthesia, single shot block. Two grams of IV cefazolin infused prior to incision. Timeout was called PATIENT NAME: PING HARTMAN confirming site, side, and intended procedures. Needle and sponge counts were correct prior to closure. Deep venous thrombosis prophylaxis perioperatively. Weightbear as tolerated to bilateral lower extremities. The patient was marked and consented. History and physical was updated. Consent was obtained including the risks and benefits including failure to heal, stiffness, pain, bleeding, infection, injuries to nerves or blood vessels, fracture failed and surgery revision, complication of the block, anesthetic and medical complication. Adjusto Writer Operator was needed for patient positioning, draping, arm positioning, suture retrieval, scope positioning, dressing, and sling placement for this complex double row rotator cuff repair. INDICATIONS: The patient has a history, exam, and MRI confirming significant rotator cuff tears, chronic appearing. Ultimately in the OR noted to have massive tearing of the supra and infraspinatus, retracted back to the level of the glenoid, significantly even more apparent than her relatively poor quality outside the hospital open MRI. OPERATIVE FINDINGS: The tissue was poor quality, dysplastic with actually quite poor mobility, but we were able to perform releases to get better range of motion. Full-thickness tearing of the supra and infraspinatus, approximately 40 mm from A to P and retracted back to the level of the glenoid. Rotator cuff repair construct was a complex double row supra and infraspinatus, 3 x 2 transosseous equivalent repair. Three medial anchors N[employer]ola [employer]hew 4.5-mm Healicoil PEEK, two lateral anchors [employer]hew 5.5-mm footprint PEEK. Bone quality was fair. Labrum, SLAP 2 tear noted. Biceps tendinopathy, synovitis, and partial tearing was noted. Biceps tenodesis construct, suprapectoral in the bicipital groove above the level of the pectoralis major tendon. [employer]rex [employer] screw, drill size 8, screw size 8. Excellent repair. Humeral head and glenoid had grade III and some small grade IV changes as well. Early arthritis was noted. Extensive debridement was performed inside the joint with a chondroplasty on the humeral and the glenoid side as well as labral debridement as well as debridement in the area of the subscapularis where she had some tearing of her biceps radha and debridement of the remainder of the biceps tendon was performed in the joint as well. PROCEDURE IN DETAIL: Block was completed. The patient was placed in modified beachchair position. All bony prominences were well padded. Neck was secured in neutral alignment. No contracture or pathological laxity was noted. The extremity was cleaned with alcohol and sterilely prepped and draped and then placed in a well-padded Trimano arm parekh, and then additional prep stick was used. I made a standard posterior portal, posterolateral, lateral and anterior portals, and an additional accessory percutaneous portal to place the second medial row anchor. Findings in the joint were as noted above. Performed extensive debridement in the joint as noted of bone tendon and the labrum, all within the joint, given her early arthritic findings. The biceps tenotomy was performed prior to subsequent biceps tenodesis, had severe biceps pathology and massive rotator cuff tearing. Subacromial space, noted the massive tearing, performed a bursectomy and a subacromial decompression with minimal acromioplasty. She had a fair bit of synovitis and poor mobility of the cuff, cleaned off the greater tuberosity, gained more mobility of the cuff from a posterior to anterior fashion and opened up the biceps sheath with the shaver and cautery device, drilled for a size 8, placed a size 8 screw, had excellent fixation of the biceps tendon and then transitioned to the rotator cuff. After everything was prepared, placed 3 medial anchors, passed these sutures in PATIENT NAME: PING HARTMAN inverted mattress fashion. The posterior one was completed in a margin convergence fashion to the teres minor with the posterior most suture in the back of the infraspinatus. The very posterior portion of the infraspinatus had mobilized quite nicely, had excellent coverage of the footprint despite the poor dysplastic tissue. Removed the scope and fluid, closed with nylon. Sterile dressing and neutral rotation sling. The patient will be nonweightbearing in the sling. No biceps loading. Pendulum elbow, wrist, and hand exercise. Close followup in 2 weeks. Dictated By: Troy Malloy MD WT: OP:AMADO/JORDONR/NTS Conf#: [id number]/DID#: [id number] Authenticated by Troy Malloy MD On 10/16/2018 03:23:07 PM at 1523 PATIENT NAME: PING HARTMAN [facility]
[2025-01-11] MEDS ORDERED: LIDOCAINE 1% 20 ML MDV ONE (14:13)
[2025-01-11] MEDS ORDERED: CEFEPIME 1 GM/VIAL ONE (14:13)
[2025-01-11] MEDS ORDERED: NA CHLORIDE 0.9% 500 ML ONE (14:13)
--- NOTE | 2025-01-11 14:59 | RAD REPORT ---
EXAMINATION: Head C Spine Mpr Wo Con CLINICAL INDICATION: Female, 74 years old. PAIN TECHNIQUE: Axial CT images from the skull base to the vertex without intravenous contrast. Axial CT i mages through the cervical spine were obtained without intravenous contrast. Sagittal and coronal reformatted images were created from the data set. Coronal and sagittal reformatted images were creat ed from the data set. One or more of the following dose reduction techniques were used: Automated exposure control, adjustment of the mA and/or kV according to patient size, and/or iterative reconstr uction. Unless otherwise specified, incidental findings do not require dedicated imaging follow-up. [id number]. COMPARISON: 02/15/2020 FINDINGS: Head: INTRACRANIAL: No acute intracranial hemorrhage. No hydrocephalus. No mass effect or midline shift. No significant white matter disease. VASCULATURE: No visualized abnormalities in the arteries or dural venous sinuses. SCALP/SKULL: No calvarial fracture identified. No acute soft tissue abnormality. SINUSES: The visualized paranasal sinuses are mostly clear. No significant mastoid fluid. Cervical spine: ALIGNMENT: The cervical spine has normal alignment without scoliosis or spondylolisthesis. BONE: Vertebral body heights are maintained. No aggressive osseous lesions. DEGENERATIVE: Multilevel cervical spondylosis with evidence of bilateral neural foraminal narrowing. No high grade central spinal stenosis. Neural foraminal narrowing is most pronounced at the C4-5, C5-6, and C6-7 levels. SOFT TISSUE: No significant abnormalities in the soft tissue of the neck. The visualized lung apices are clear. IMPRESSION: No acute intracranial abnormality. No acute fracture or traumatic malalignment of the cervical spine.
--- NOTE | 2025-01-11 15:00 | RAD REPORT ---
EXAMINATION: Facial Bones W/ Mpr CLINICAL INDICATION: Female, 74 years old. TRAUMA TECHNIQUE: Axial images were obtained through the facial bones and orbits without intravenous contras t. Sagittal and coronal reconstructions were created from the data. One or more of the following dose reduction techniques were used: Automated exposure control, adjustment of the mA and/or kV accor ding to patient size, and/or iterative reconstruction. Unless otherwise specified, incidental findings do not require dedicated imaging follow-up. [id number]. COMPARISON: No prior exam. FINDINGS: SOFT TISSUE: No significant abnormalities. BONES: Slight angulation at the nasal bones bilaterally with overlying soft tissue wound. ORBITS: The globes are intact. No intraorbital hemorrhage or mass. SINUSES: The paranasal sinuses and tympanomastoid cavities are predominantly clear. BRAIN: No acute abnormalities in the visualized intracranial structures. IMPRESSION: No displaced fractures identified. Minimal angulation of the nasal bone could represent a nondisplace d nasal bone fracture.
[2025-01-11] MEDS ORDERED: CEPHALEXIN 250 MG CAP ONE (17:09)
--- NOTE | 2025-01-11 17:40 | EDPHYS ---
Physician Documentation [facility] Name: Ping Hernandez Age: 74 yrs Sex: Female : 1950 Arrival Date: 01/11/2025 Time: 13:54 Bed 4 Private MD: ED Physician Dieudonne Alvarez HPI: 01/11 17:21 This 74 yrs old Female presents to ER via Ambulatory with complaints of Fall bob Injury, Facial Injury, Laceration To Nose. 17:21 Details of fall: The patient fell from an upright position, while walking. Onset: The bob symptoms/episode began/occurred just prior to arrival. Associated injuries: The patient sustained injury to the head, face, laceration. Severity of symptoms: At their worst the symptoms were mild, moderate, in the emergency department the symptoms are unchanged. The patient has not experienced similar symptoms in the past. Historical: - Allergies: 14:10 Codeine; ld1 - PMHx: 14:10 Hypertension; ld1 - PSHx: 14:10 Hysterectomy (Hypertension); ld1 - Immunization history:: Adult Immunizations up to date. - Infectious Disease History:: Denies. - Social history:: Smoking status: Patient denies any tobacco usage or history of. ROS: 17:23 Constitutional: Negative for fever, chills, and weight loss, Eyes: Negative for injury, bob pain, redness, and discharge, Neck: Negative for injury, pain, and swelling, Cardiovascular: Negative for chest pain, palpitations, and edema, Respiratory: Negative for shortness of breath, cough, wheezing, and pleuritic chest pain, Abdomen/GI: Negative for abdominal pain, nausea, vomiting, diarrhea, and constipation, Back: Negative for injury and pain, : Negative for injury, bleeding, discharge, and swelling, MS/Extremity: Negative for injury and deformity, Skin: Negative for injury, rash, and discoloration, Neuro: Negative for headache, weakness, numbness, tingling, and seizure, Psych: Negative for depression, anxiety, suicide ideation, homicidal ideation, and hallucinations, Allergy/Immunology: Negative for hives, rash, and allergies, Endocrine: Negative for neck swelling, polydipsia, polyuria, polyphagia, and marked weight changes, Hematologic/Lymphatic: Negative for swollen nodes, abnormal bleeding, and unusual bruising, 17:23 ENT: Positive for dental pain, of the nose and mouth, nose bleed, Exam: 17:23 Constitutional: This is a well developed, well nourished patient who is awake, alert, bob and in no acute distress. Eyes: Pupils equal round and reactive to light, extra-ocular motions intact. Lids and lashes normal. Conjunctiva and sclera are non-icteric and not injected. Cornea within normal limits. Periorbital areas with no swelling, redness, or edema. Neck: Trachea midline, no thyromegaly or masses palpated, and no cervical lymphadenopathy. Supple, full range of motion without nuchal rigidity, or vertebral point tenderness. No Meningismus. Chest/axilla: Normal chest wall appearance and motion. Nontender with no deformity. No lesions are appreciated. Cardiovascular: Regular rate and rhythm with a normal S1 and S2. No gallops, murmurs, or rubs. Normal PMI, no JVD. No pulse deficits. Respiratory: Lungs have equal breath sounds bilaterally, clear to auscultation and percussion. No rales, rhonchi or wheezes noted. No increased work of breathing, no retractions or nasal flaring. Abdomen/GI: Soft, non-tender, with normal bowel sounds. No distension or tympany. No guarding or rebound. No evidence of tenderness throughout. Back: No spinal tenderness. No costovertebral tenderness. Full range of motion. Skin: Warm, dry with normal turgor. Normal color with no rashes, no lesions, and no evidence of cellulitis. MS/ Extremity: Pulses equal, no cyanosis. Neurovascular intact. Full, normal range of motion., bilateral aka Neuro: Awake and alert, GCS 15, oriented to person, place, time, and situation. Cranial nerves II-XII grossly intact. Motor strength 5/5 in all extremities. Sensory grossly intact. Cerebellar exam normal. Normal gait. Psych: Awake, alert, with orientation to person, place and time. Behavior, mood, and affect are within normal limits. Vital Signs: 14:08 BP 150 / 67; Pulse 67; Resp 18; Temp 97.4(TE); Pulse Ox 97% on R/A; Weight 70.31 kg; ld1 Height 5 ft. 2 in. ; Pain 0/10; 16:09 BP 114 / 56; Pulse 57; Resp 16; Pulse Ox 99% ; ll1 17:56 BP 121 / 65; Pulse 61; Resp 16; Pulse Ox 99% ; bp 14:08 Body Mass Index 28.35 (70.31 kg, 157.48 cm) ld1 14:08 Pain Scale: Adult ld1 Sanger Coma Score: 17:29 Eye Response: spontaneous(4). Motor Response: obeys commands(6). Verbal Response: bob oriented(5). Total: 15. Laceration: 17:27 Wound Repair of 2.5cm ( 1.0in ) subcutaneous laceration to nose. Irregularly shaped.. bob Skin/tissue flap noted.. Distal neuro/vascular/tendon intact. Anesthesia: Local anesthetic administered with 5 mls of 1% lidocaine. Wound prep: Simple cleansing by me. Skin closed with 2 5-0 Prolene using interrupted sutures and sterile technique. 17:27 Wound Repair of 0.5cm ( 0.2in ) partial thickness laceration to mouth. Distal bob neuro/vascular/tendon intact. Anesthesia: Local anesthetic administered with 5 mls of 1% lidocaine. Wound prep: Simple cleansing by me. Skin closed with 2 5-0 Vicryl using interrupted sutures and sterile technique. Dressed with none. Patient tolerated well. MDM: 14:05 Medical Screening Exam initiated bob 17:29 Differential diagnosis: Contusion of Hematoma on Laceration of face, upper lip, bob Intracranial bleed- Concussion. Differential diagnosis: abrasion, closed head injury, contusion, fracture, laceration, multiple trauma. Data reviewed: vital signs, nurses notes, EMS record, lab test result(s), radiologic studies, CT scan. Consideration of Admission/Observation Escalation of care including admission/observation considered. I considered the following discharge prescriptions or medication management in the emergency department Medications were administered in the Emergency Department. See MAR. Independent interpretation of the following test(s) in the Emergency Department CT Scan: My interpretation is ct head , face, c spine. 01/11 14:10 Order name: CT Head C Spine; Complete Time: 16:44 [facility] 01/11 14:10 Order name: CT Facial Bones W/O Con; Complete Time: 16:44 [facility] 01/11 14:10 Order name: Dressing - Wound; Complete Time: 14:21 [facility] 01/11 14:10 Order name: Gloves, Sterile; Complete Time: 14:21 [facility] 01/11 14:10 Order name: Prolene, Sutures; Complete Time: 14: bob 01/11 14:10 Order name: Setup Suture Tray; Complete Time: 14: bob Administered Medications: 14:19 Drug: NS 0.9% IV 500 ml 500 ml IV at 1 bolus once; to be given as a bolus over 30 ll1 minutes Volume: 500 ml; Route: IV; Rate: 1 bolus; Site: right antecubital; 16:09 Follow up: Response: No adverse reaction; IV Status: Completed infusion; IV Intake: ll1 500ml 14:19 Drug: ceFAZolin IVPB 1 grams IVPB once Route: IVPB; Site: right antecubital; ll1 16:09 Follow up: Response: No adverse reaction; IV Status: Completed infusion; IV Intake: [id number] 14:21 Drug: Lidocaine-Epinephrine Infiltration -1%: (1:100,000) 10 ml 20 ml Infiltration bp once; to bedside Volume: 20 ml; Route: Infiltration; 16:09 Follow up: Response: No adverse reaction ll1 17:17 Drug: Cephalexin PO 500 mg PO once Route: PO; bp 17:56 Follow up: Response: No adverse reaction bp 17:22 Drug: Ygctltwm-Yrbvtqppws-Wvgpbaclm Topical Ointment 1 application Topical once Route: bp Topical; Site: affected area; Disposition Summary: 01/11/25 17:39 Discharge Ordered Notes: Location: Home bob Problem: new bob Symptoms: have improved bob Condition: Stable bob Diagnosis - Fall on same level, unspecified bob - Fracture of nasal bones bob - Laceration without foreign body of unspecified part of head - nose , upper inner lipcha Followup: bob - With: Private Physician - When: 2 - 3 days - Reason: Recheck today's complaints, Continuance of care, Re-evaluation by your physician Followup: bob - With: Nicki Neil MD - When: 5 - 6 days - Reason: Recheck today's complaints, Re-evaluation by your physician Discharge Instructions: - Discharge Summary Sheet bob - Laceration Care, Adult bob - Mouth Laceration bob - Facial Laceration bob - Nasal Fracture bob - Mouth Laceration, Mwzx-kh-Ionh bob - Facial Laceration, Mspz-ot-Rave bob - Nasal Fracture, Evjj-qg-Svls bob Forms: - Medication Reconciliation Form bob - Antibiotic Education bob - Prescription Opioid Use bob - Patient Portal Instructions [facility] - Leadership Thank You Letter [facility] Prescriptions: - Neosporin (ilp-ave-hhuuk) 3.5mg-400 unit- 5,000 unit/gram Topical ointment - apply 1 application TOPICAL route 3 times per day; 15 gram; Refills: 0, Product [facility] Selection Permitted - Cephalexin 500 mg Oral capsule - take 1 capsule ORAL route every 6 hours for 7 days; 28 capsule; Refills: 0, [facility] Product Selection Permitted - Motrin IB 200 mg Oral tablet - take 2 tablet ORAL route every 6 hours As needed as needed with food; 30 bob tablet; Refills: 0, Product Selection Permitted Signatures: Dispatcher [employer] EDDieudonne Escobar MD MD cha Peltier, Brian RN RN Hortensia Wells RN RN ll1 Lory Dunlap RN RN ld1
--- NOTE | 2025-01-11 17:40 | ER ---
Nurse's Notes [facility] Name: Ping Hernandez Age: 74 yrs Sex: Female : 1950 Arrival Date: 01/11/2025 Time: 13:54 Bed 4 Private MD: Diagnosis: Fall on same level, unspecified;Fracture of nasal bones;Laceration without foreign body of unspecified part of head-nose , upper inner lip Presentation: 01/11 14:08 Chief complaint: Patient states: Tripped on patio - fell face first onto concrete. C/O ld1 headache and pain to nose. Coronavirus screen: At this time, the client does not indicate any symptoms associated with coronavirus-19. Ebola Screen: No symptoms or risks identified at this time. Initial Sepsis Screen: Does the patient meet any 2 criteria? No. Patient's initial sepsis screen is negative. Does the patient have a suspected source of infection? No. Patient's initial sepsis screen is negative. Risk Assessment: Do you want to hurt yourself or someone else? Patient reports no desire to harm self or others. Onset of symptoms was January 11, 2025. 14:08 Method Of Arrival: Ambulatory ld1 14:08 Acuity: MARLEE 3 ld1 Triage Assessment: 14:10 General: Appears in no apparent distress. comfortable, Behavior is calm, cooperative, ld1 appropriate for age. Pain: Complains of pain in nose Pain does not radiate. Pain currently is 8 out of 10 on a pain scale. Quality of pain is described as throbbing, Pain began suddenly, Is continuous. EENT: No signs and/or symptoms were reported regarding the EENT system. Neuro: Level of Consciousness is awake, alert, obeys commands, Oriented to person, place, time, situation. Cardiovascular: Capillary refill < 3 seconds Patient's skin is warm and dry. Respiratory: Airway is patent Respiratory effort is even, unlabored. GI: Abdomen is flat, non-distended. : No signs and/or symptoms were reported regarding the genitourinary system. Derm: No signs and/or symptoms reported regarding the dermatologic system. Musculoskeletal: No signs and/or symptoms reported regarding the musculoskeletal system. Historical: - Allergies: 14:10 Codeine; ld1 - PMHx: 14:10 Hypertension; ld1 - PSHx: 14:10 Hysterectomy (Hypertension); ld1 - Immunization history:: Adult Immunizations up to date. - Infectious Disease History:: Denies. - Social history:: Smoking status: Patient denies any tobacco usage or history of. Screenin:10 [facility] ED Fall Risk Assessment (Adult) History of falling in the last 3 months, ll1 including since admission Yes- single mechanical fall (1 pt) Confusion or Disorientation No (0 pts) Intoxicated or Sedated No (0 pts) Impaired Gait No (0 pts) Mobility Assist Device Used No (0 pt) Altered Elimination No (0 pt) Score/Fall Risk Level 0 - 2 = Low Risk Maintained a safe environment, Hourly rounding (assess needs \T\ fall precautionary measures) done. Abuse screen: Denies threats or abuse. Nutritional screening: No deficits noted. Tuberculosis screening: No symptoms or risk factors identified. Assessment: 16:00 Reassessment: No changes from previously documented assessment. gait steady to restroom.ll1 Vital Signs: 14:08 BP 150 / 67; Pulse 67; Resp 18; Temp 97.4(TE); Pulse Ox 97% on R/A; Weight 70.31 kg; ld1 Height 5 ft. 2 in. ; Pain 0/10; 16:09 BP 114 / 56; Pulse 57; Resp 16; Pulse Ox 99% ; ll1 17:56 BP 121 / 65; Pulse 61; Resp 16; Pulse Ox 99% ; bp 14:08 Body Mass Index 28.35 (70.31 kg, 157.48 cm) ld1 14:08 Pain Scale: Adult ld1 Kathleen Coma Score: 17:29 Eye Response: spontaneous(4). Motor Response: obeys commands(6). Verbal Response: bob oriented(5). Total: 15. ED Course: 13:56 Patient arrived in ED. im 14:04 Dieudonne Alvarez MD is Attending Physician. bob 14:06 Eriberto Stone, RN is Primary Nurse. bp 14:09 Triage completed. ld1 14:10 Arm band placed on right wrist. ld1 14:15 Patient has correct armband on for positive identification. Provided Education on: ER ll1 procedures and process. 14:49 CT Head C Spine In Process Unspecified. EDMS 14:50 CT Facial Bones W/O Con In Process Unspecified. EDMS 17:38 Nicki Neil MD is Referral Physician. [facility] 17:55 Assist provider with laceration repair on mouth and nose that was 2.5 cm. or less using bp sutures. Set up tray. Performed by Dieudonne Alvarez MD Dressed with Neosporin. Patient did not have IV access during this emergency room visit. Administered Medications: 14:19 Drug: NS 0.9% IV 500 ml 500 ml IV at 1 bolus once; to be given as a bolus over 30 ll1 minutes Volume: 500 ml; Route: IV; Rate: 1 bolus; Site: right antecubital; 16:09 Follow up: Response: No adverse reaction; IV Status: Completed infusion; IV Intake: ll1 500ml 14:19 Drug: ceFAZolin IVPB 1 grams IVPB once Route: IVPB; Site: right antecubital; ll1 16:09 Follow up: Response: No adverse reaction; IV Status: Completed infusion; IV Intake: [id number] 14:21 Drug: Lidocaine-Epinephrine Infiltration -1%: (1:100,000) 10 ml 20 ml Infiltration bp once; to bedside Volume: 20 ml; Route: Infiltration; 16:09 Follow up: Response: No adverse reaction ll1 17:17 Drug: Cephalexin PO 500 mg PO once Route: PO; bp 17:56 Follow up: Response: No adverse reaction bp 17:22 Drug: Coxxmleh-Sbeuxoazdk-Qpxmjzybk Topical Ointment 1 application Topical once Route: bp Topical; Site: affected area; Medication: 16:10 VIS not applicable for this client. ll1 Intake: 16:09 IV: 500ml; Total: 500ml. ll1 16:09 IV: 10ml; Total: 510ml. ll1 Outcome: 17:39 Discharge ordered by . bob 17:55 Discharged to home ambulatory, with family, bp 17:55 Condition: stable 17:55 Discharge instructions given to patient, family, Instructed on discharge instructions, follow up and referral plans. medication usage, wound care, Demonstrated understanding of instructions, follow-up care, medications, wound care, Prescriptions given X 3, 17:56 Patient left the ED. bp Signatures: Dispatcher [employer] EDDieudonne Escobar MD MD cha Peltier, Brian, RN RN bp Hortensia Gaspar RN RN ll1 Lory Dunlap RN RN 1 Cisneros, Yulissa im
[2025-01-11 18:01] VITALS: TEMP 97.4
[2025-01-11 18:02] VITALS: O2SAT 99
[2025-01-11 18:03] VITALS: BP 121/65
== END 2025-01-11 17:56 | disposition home or self-care (01) ==
LOC: ER 13:54
DX: S02.2XXA Fracture of nasal bones, initial encounter for closed fracture (principal); S01.21XA Laceration without foreign body of nose, initial encounter; S01.511A Laceration without foreign body of lip, initial encounter; W18.30XA Fall on same level, unspecified, initial encounter
CPT/HCPCS: 70450; 72125; 70486; 76377; 12013; J2003; J7040; J0692; 12011; 12051; 96365; 96366; 99284